=== PATIENT | male | born 1950 | race Caucasian/White ===

== ENCOUNTER 2019-04-08 04:35 | Emergency (ER) | payer BC, SELFPAY ==
[2019-04-08 04:39] VITALS: BP 189/99; PULSE 82; RESP 16; TEMP 37.1; O2SAT 98
--- NOTE | 2019-04-08 04:42 | ED.GENADUL_ITS ---
Discharge Plan Disposition Patient Disposition: HOME Condition: Stable Discharge Details Chief Complaint: Abd Prob Clinical Impression: Kidney stone Primary Care Provider: Chino George ED Provider: Theron Buckner Home Meds and New Rx's Prescriptions: New oxycodone 5 mg tablet 5 mg PO Q6H PRN (Reason: pain) Qty: 12 RF: 0 tamsulosin [Flomax] 0.4 mg capsule 0.4 mg PO DAILY Qty: 14 RF: 0 ondansetron 4 mg tablet,disintegrating 4 mg PO Q8H PRN (Reason: nausea and vomiting) Qty: 20 RF: 0 cephalexin 750 mg capsule 750 mg PO Q12H Qty: 14 RF: 0 Continued sildenafil [Viagra] 50 MG tablet 50 mg PO RF: 0 esomeprazole magnesium [Nexium] 20 MG capsule,delayed release(DR/EC) 20 mg PO DAILY RF: 0 Discharge Instructions Instructions: Kidney Stones (ED) Additional Instructions: you should be contacted with an appointment with urology if you have fevers, uncontrolled pain or persistent vomit return to the emergency department you can take 1000mg tylenol and 600mg ibuprofen every 6 hours for pain as needed Medical Decision Making 68 yo male with no chronic medical problems comes in with intermittent llq pain for 2 weeks but has been more constant the past day. Denies vomit, fevers, changes in bowel or urinary habits. HAs had cholecystectomy otherwise no other abdominal surgeries. On exam he is in no distress with llq tenderness and no other pain elsewhere and normal testicle exam with no swelling, tenderness and normal cremasteric reflex. Could be diverticulitis, less likely kidney stnoe. Will obtain ct and labs and monitor. pt's CT shows kidney stone and some nonspecific inflammatory changes of the prostate and perinephric stranding. Has no cva tendernses or fevers so doubt pyelo. He states in the past he has had uti's. Will start him on flomax, pain meds and abx and refer to urology within 1-2 weeks. Return precautions given Differential Diagnosis Differential Diagnosis: diverticulitis, kidney stone, hernia Imaging Data Radiologic Study: Attestation: I personally reviewed and interpreted this imaging study as follows: Imaging: CT Scan Radiologist's impression: IMPRESSION: 1. Obstructing calculus distal left ureter. 2. Enlarged prostate with diminished enhancement peripherally which could be due to edema and the presence of prostatitis. 3. Hepatic steatosis. Lab Data Lab results reviewed: Yes I reviewed the patient's lab results. HPI General Mode of arrival: ambulatory . Date/Time Provider Initiated Documentation: 04/08/19 04:35 . Limitations to Documentation: no limitations . Information obtained by: patient . History of Present Illness 68 year old M presents to the emergency department with the chief complaint of left lower abdominal pain, described as moderate, Quality is described as stabbing, Patient reports no radiation. Patient started experiencing this week(s) (2) and it has been intermittent. No relieving factors improve symptom(s), No exacerbating factors reported . Patient did receive the following treatments prior to arrival, none Related Data Home Medications Medication Instructions Recorded Confirmed esomeprazole magnesium [Nexium] 20 mg PO DAILY tab-cap NS 11/22/13 sildenafil [Viagra] 50 mg PO NS 11/22/13 cephalexin 750 mg PO Q12H #14 cap 04/08/19 ondansetron 4 mg PO Q8H PRN #20 tab 04/08/19 oxycodone 5 mg PO Q6H PRN #12 tab 04/08/19 tamsulosin [Flomax] 0.4 mg PO DAILY #14 cap 04/08/19 Previous Rx's Medication Instructions Recorded cephalexin 750 mg PO Q12H #14 cap 04/08/19 ondansetron 4 mg PO Q8H PRN #20 tab 04/08/19 oxycodone 5 mg PO Q6H PRN #12 tab 04/08/19 tamsulosin [Flomax] 0.4 mg PO DAILY #14 [facility] 04/08/19 Allergies Allergy/AdvReac Type Severity Reaction Status Date / Time ciprofloxacin [From Cipro] Allergy Unknown Unverified 11/22/13 11:54 ciprofloxacin HCl Allergy Unknown Unverified 11/22/13 11:54 [From Cipro] General Stated Complaint: Abd Prob MANUEL: 3 Review of Systems All systems reviewed & are unremarkable except as noted in HPI and below Constitutional Constitutional: Denies chills, Denies fever(s) and Denies weakness Cardiovascular Cardiovascular: Denies chest pain and Denies dyspnea Respiratory Respiratory: Denies cough and Denies dyspnea Gastrointestinal Gastrointestinal: Denies vomiting Musculoskeletal Musculoskeletal: Denies joint swelling Neurologic Neurologic: Denies weakness Psychiatric Psychiatric: Denies depression PFSH Social History Smoking/Tobacco Use Status: Never Alcohol Intake: current Alcohol Intake frequency: holidays/special occasions only Substance use type: does not use Do you feel safe at home: Yes Do you feel safe in your relationship?: Yes Exam Const General: no acute distress Orientation: alert HENMT Head: normal to inspection Ears: external ears normal General nose exam: external nose normal Mouth: moist mucous membranes Eyes General: appearance normal, both eyes and all related structures Neck Neck: normal visual inspection Resp Effort & Inspection: normal respiratory effort and able to speak in complete sentences Cardio Rate: regular rate GI Palpation: soft Skin General skin exam: no rashes or lesions noted Neuro General: alert and oriented x3 Extrem General: normal to inspection Psych Mental Status: mental status grossly normal Course Vital Signs Vital signs: Vital Signs Temperature 37.1 C 04/08/19 04:39 Pulse 82 04/08/19 04:39 Respiratory Rate 16 04/08/19 04:39 Blood Pressure 189/99 H 04/08/19 04:39 Pulse Oximetry 98 04/08/19 04:39 Temperature 37.1 C 04/08/19 04:39 Temperature Source Skin 04/08/19 04:39 Pulse 82 04/08/19 04:39 Respiratory Rate 16 04/08/19 04:39 Blood Pressure 189/99 H 04/08/19 04:39 Blood Pressure Position Sitting 04/08/19 04:39 Pulse Oximetry 98 04/08/19 04:39 Oxygen Delivery Method Room Air 04/08/19 04:39 Oxygen Flow Rate 0 04/08/19 04:39 Pain Level 7 04/08/19 04:39
[2019-04-08] MEDS: Ketorolac 15 MG/ML VIAL IVP (04:56)
[2019-04-08] MEDS: Normal Saline 1,000 ML 1000 ML IV (04:56)
[2019-04-08 05:10] LABS: Abs Immature Grans 0.04 k/cumm (0.0-0.09); Absolute Basophil Count 0.03 k/cumm (0.0-0.2); Absolute Eosinophil Count 0.01 k/cumm (0.0-0.7); Absolute Lymphocyte Count 1.27 k/cumm (1.2-3.4); Absolute Monocyte Count 0.97 k/cumm (0.11-0.7); Absolute Neutrophil Count 10.64 k/cumm (1.2-6.7); Basophils % 0.2; Eosinophils % 0.1; HCT 44.5 % (40.0-50.0); HGB 15.8 g/dL (13.5-17.5); Immature Grans % 0.3; Lymphocytes % 9.8; Mean Corp. HGB Concentration 35.5 g/dL (32.0-36.0); Mean Corpuscular Hemoglobin 29.7 pg (27.0-33.0); Mean Corpuscular Volume 83.6 fL (80-95); Mean Platelet Volume 8.8 fL (8.0-11.0); Monocytes % 7.5; Neutrophils % 82.1; Platelet Count 285 x1000/uL (130-400); RBC 5.32 m/cumm (4.50-6.00); White Blood Cell Count 12.96 k/cumm (4.4-10.8)
[2019-04-08] MEDS: Omnipaque 350 MG/ML 100 ML BTL IJ (05:13)
[2019-04-08 05:24] LABS: PTT Activated 25.9 sec (21.0-31.4); Prothrombin Time 9.6 sec (9.3-11.0)
[2019-04-08 05:25] LABS: ALT 47 U/L (16-63); AST 23 U/L (15-37); Albumin 3.9 g/dL (3.4-5.0); Alkaline Phosphatase 50 U/L (46-116); Anion Gap 9.3 mmol/L (3-11); BUN 18 mg/dL (7-18); Bilirubin, Total 0.7 mg/dL (0.2-1.0); CO2 28.7 mmol/L (21.0-32.0); CREATININE 1.77 mg/dL (0.70-1.30); Calcium 8.9 mg/dL (8.5-10.1); Chloride 102 mmol/L (98-107); Estimated GFR 38.68 (mL/min/1.73m2); Glucose 144 mg/dL (74-106); Lipase 88 U/L (73-393); Potassium 4.1 mmol/L (3.5-5.1); Sodium 140 mmol/L (136-145); Total Protein 8.2 g/dL (6.4-8.2)
--- NOTE | 2019-04-08 05:30 | DI.CT_ITS ---
EXAM: CT ABDOMEN PELVIS W CLINICAL HISTORY: left lower abdominal pain TECHNIQUE: Post 100 cc Omnipaque 350 IV. No oral contrast was administered. COMPARISON: No exams were available for comparison FINDINGS: There is a 3 millimeter stone in the distal left ureter causing moderate left hydronephrosis. There is mild perinephric stranding. No additional renal calculi or bladder calculi are seen. The prosta te appears enlarged. There are small bilateral fatty containing inguinal hernias. The heart size is normal. The lung bases are clear. The liver shows moderate to severe diffuse fatt y infiltration. The patient is status post cholecystectomy. The spleen, adrenals and pancreas are u nremarkable. There is a normal quantity of stool. The appendix appears normal. No bowel dilatation or inflammatory changes are seen. There are a few small scattered sigmoid diverticula. The aorta i s normal in diameter. There are degenerative disc changes in the lumbar spine greatest at L4-5 and L 5-S1. There is a small fatty containing umbilical hernia. IMPRESSION: Moderate left hydronephrosis secondary to a 3 millimeter stone in the in the distal left ureter.
[2019-04-08 05:43] LABS: Bilirubin Negative (Negative); Blood Trace-intact (Negative); Clarity Clear (Clear); Glucose Negative (Negative); Ketones Negative (Negative); Leukocyte Esterase Negative (Negative); Nitrite Negative (Negative); Specific Gravity 1.015 (1.005-1.025)
--- NOTE | 2019-04-08 05:48 | DI.VRAD_ITS ---
PROCEDURE INFORMATION: Exam: CT Abdomen And Pelvis With Contrast Exam date and time: 04/08/2019 4:50 AM Age: 68 years old Clinical history: Abdominal pain; Localized; Left lower quadrant (llq); Prior surgery; Surgery date: 6+ months; Surgery type: Gallbladder removed; Patient HX: Llq pain for days; Additional info: HX of kidney stone TECHNIQUE: Imaging protocol: Computed tomography of the abdomen and pelvis with intravenous contrast. Radiation optimization: All CT scans at this facility use at least one of these dose optimization techniques: automated exposure control; mA and/or kV adjustment per patient size (includes targeted exams where dose is matched to clinical indication); or iterative reconstruction. Contrast material: OMNIPAQUE 350; Contrast volume: 100 ml; Contrast route: IV LAC; COMPARISON: No relevant prior studies available. FINDINGS: Liver: There is diffuse decrease in hepatic parenchymal density, consistent with moderate fatty infiltration. No mass Gallbladder and bile ducts: The patient is status post cholecystectomy. No biliary ductal dilatation. Pancreas: Normal. No ductal dilation. Spleen: Normal. No splenomegaly. Adrenals: Normal. No mass. Kidneys and ureters: Obstructing 2.5 mm calculus in distal left ureter. There is moderate left hydronephrosis and hydroureter. Moderate left and mild right perinephric stranding. Stomach and bowel: Unremarkable. No obstruction. No mucosal thickening. Appendix: Normal in appearance. No evidence of appendicitis. Intraperitoneal space: Unremarkable. No free air. No significant fluid collection. Vasculature: Unremarkable. No abdominal aortic aneurysm. Lymph nodes: Unremarkable. No enlarged lymph nodes. Bladder: Unremarkable as visualized. Reproductive: Enlarged prostate with central high attenuation/enhancement demarcated from homogeneously diminished enhancement peripherally. Prostatic calcifications. Bones/joints: Unremarkable. No acute fracture. The spine demonstrates mild degenerative changes at multiple levels. Soft tissues: Bilateral, fat-containing inguinal hernias. IMPRESSION: 1. Obstructing calculus distal left ureter. 2. Enlarged prostate with diminished enhancement peripherally which could be due to edema and the presence of prostatitis. 3. Hepatic steatosis. Dictated and Authenticated by: Cheo Bernard MD. Ordering:GRZEGORZ Crump MD
[2019-04-08 05:57] LABS: WBC Negative HPF (0-5)
[2019-04-08 05:58] LABS: Bacteria Rare HPF (Negative); Crystals Few Amorphous HPF (Negative); Epithelial Cells Negative HPF (Negative); Other Cells Negative (Negative)
[2019-04-08 05:59] LABS: C & S Indicated? No; Casts Negative LPF (Negative); Mucus Negative (Negative)
[2019-04-08] MEDS: Normal Saline Flush 10 ML SYR IVP (06:09)
[2019-04-08 06:31] VITALS: BP 169/88; PULSE 68; RESP 16; O2SAT 96
--- NOTE | 2019-04-08 07:11 | NUR.NOTE ---
fax referal to urology 04/08/19 Nursing Note:
== END 2019-04-08 06:38 | disposition home or self-care (01) ==
PROVIDERS: Emergency Provider Emergency Medicine; PCP Family Medicine
DX: N13.2 Hydronephrosis with renal and ureteral calculous obstruction (principal); N40.0 Benign prostatic hyperplasia without lower urinary tract symptoms; Z87.440 Personal history of urinary (tract) infections
CPT/HCPCS: 36415; 80053; 83690; 96361; 96374; 96376; 99285; 74177; 81003; 81015; 85025; 85610; 85730; 87086; 99284; J1885; J3490

== ENCOUNTER 2019-05-14 01:03 | Outpatient (CLI) | payer BC, SELFPAY ==
--- NOTE | 2019-05-14 08:26 | DI.US_ITS ---
EXAM: US RENAL CLINICAL HISTORY: monitoring left hydronephrosis, N13.30 TECHNIQUE: Ultrasound performed using standard protocol. COMPARISON: CT ABDOMEN PELVIS W from 04/08/2019 FINDINGS: Renal ultrasound was performed according to the usual protocol. Examination is compared with prior a bdominal and pelvic CT of April 08 which showed left hydronephrosis secondary to a mid ureteral calculus. On today's examination the left hydronephrosis has resolved. Small bilateral renal cysts again noted. No nephrolithiasis by ultrasound criteria. Urinary bladder is unremarkable in appearance with pre and postvoid bladder volume 100 cc and 7 cc re spectively. Ureteral jets are noted bilaterally. IMPRESSION: Interval resolution of left hydronephrosis since CT of 04/08/2019. Examination is unremarkable at th is time except for small bilateral renal simple cysts.
== END 2019-05-14 01:23 ==
PROVIDERS: PCP Family Medicine; Visit Provider Nurse Practitioner Gerontology
DX: N13.30 Unspecified hydronephrosis (principal); N28.1 Cyst of kidney, acquired
CPT/HCPCS: 76770

== ENCOUNTER 2022-11-28 11:42 | Outpatient (CLI) | payer MEDICARE, SELFPAY ==
--- NOTE | 2022-11-28 11:15 | DI.RAD_ITS ---
Exam(s) XR ANKLE RT COMPLETE EXAM: XR ANKLE RT COMPLETE CLINICAL HISTORY: R ankle mass. TECHNIQUE: 2D digital imaging was performed. Three views. COMPARISON: No exams were available for comparison FINDINGS: BONES: No acute fracture is present. No bony destructive lesion is seen. Prominent heel spurs. Mi ld spurring at the malleoli. JOINTS: The ankle mortise is normally aligned. Ankle joint space is maintained. SOFT TISSUE: Normal. No mass or significant soft tissue swelling is visible. IMPRESSION: Mild degenerative changes. No mass is visible. DATA REPOSITORY: RADIATION DOSE DELIVERED:
== END 2022-11-28 11:43 | disposition home or self-care (01) ==
LOC: DIORS 11:42
PROVIDERS: PCP Family Medicine; Referring Provider Family Medicine; Visit Provider Student in an Organized Health Care Education/Training Program
DX: R22.41 Localized swelling, mass and lump, right lower limb (principal); D36.13 Benign neoplasm of peripheral nerves and autonomic nervous system of lower limb, including hip
CPT/HCPCS: 99203; 73610

== ENCOUNTER → 2022-12-20 01:03 | Outpatient (CLI) | payer MEDICARE, SELFPAY ==
--- NOTE | 2022-12-20 07:30 | DI.MRI_ITS ---
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 COMPARISON: CR XR ANKLE RT COMPLETE from 11/28/2022 FINDINGS: BONES/JOINTS: No fracture or contusion pattern. No bone lesions identified. The talar dome is smooth. The ankle mortise is maintained. No joint effusion is present. LIGAMENTS: The tibiofibular and calcaneofibular ligaments are intact. The talofibular ligaments are i ntact. The deltoid ligament is intact. The syndesmosis is unremarkable. Sinus tarsi is normal. MUSCULOTENDINOUS STRUCTURES: Achilles tendon: Unremarkable. Plantar fascia: There is mild thickening of the plantar fascia at its insertion site. There is peggy l signal in the underlying bone. Anterior Extensor tendons: Unremarkable. Posterior Tibialis: Unremarkable. Flexor Digitorum longus: Unremarkable. Flexor Hallucis longus: Unremarkable. Peroneus longus: Unremarkable. Peroneus brevis:Unremarkable. SOFT TISSUES: There is a 8.3 craniocaudad by 8.0 AP by 5.8 transverse mm mass in the soft tissues lat eral to the distal fibular diaphysis. It is homogeneously hyperintense on the T2 weighted images and homogeneously hypointense on the T1 weighted images. It lies in the subcutaneous tissues. There is no involvement of the adjacent musculature, tendons or bone. There is mild remodeling of the underl jeanette bone. There is normal signal in the cortex and marrow. There is a linear hypointense structure associated with the mass running in the soft tissues the length of the lower extremity which may rep resent a parent nerve. OTHER FINDINGS: None. IMPRESSION: 8.3 x 8.0 x 5.8 mm soft tissue mass in the soft tissues of the lateral lower leg corresponding to the palpable abnormality. It appears to be contiguous with a thin linear hypointense structure running in the subcutaneous tissues which may represent a nerve. This mass may represent a neuroma.Neoplasm cannot be excluded. DATA REPOSITORY:
== END ==
PROVIDERS: PCP Family Medicine; Visit Provider Student in an Organized Health Care Education/Training Program
DX: R22.31 Localized swelling, mass and lump, right upper limb (principal); M79.661 Pain in right lower leg
CPT/HCPCS: 73721